=== PATIENT | male | born 1965 ===

== ENCOUNTER 2017-03-23 02:01 | Emergency (ER) | payer MEDICARE, MEDICAID ==
[2017-03-23 02:22] VITALS: O2SAT 98
--- NOTE | 2017-03-23 02:26 | ED PDOC ---
HPI: Back Time Seen by Provider: 03/23/17 02:23 Chief Complaint (Nursing): Back Pain Chief Complaint (Provider): back pain History Per: Patient History/Exam Limitations: no limitations Onset/Duration Of Symptoms: Days (2) Current Symptoms Are (Timing): Still Present Quality Of Discomfort: "Pain" Additional History Per: Patient Additional Complaint(s): 51 y/o male ambulates to ED for eval of low back pain x 2 days. Patient states he has history of chronic back pain, he is being sent for MRI of the back by his primary doctor. Denies fever, nausea/vomiting, fall/trauma, numbness/ weakness lower extremities, bowel/bladder incontinence, dysuria, hematuria. Patient appears intoxicated, admits to drinking tonight. Past Medical History Reviewed: Historical Data, Nursing Documentation, Vital Signs Vital Signs: Last Vital Signs Temp 97.8 F 03/23/17 02:05 Pulse 76 03/23/17 02:05 Resp 18 03/23/17 02:05 BP 108/65 03/23/17 02:05 Pulse Ox 98 03/23/17 02:05 - Medical History PMH: Anxiety, Back Problems (chronic back pain), Depression - Family History Family History: States: Unknown Family Hx - Home Medications Home Medications: Ambulatory Orders Medication Instructions Recorded Ibuprofen [Motrin Tab] 1 tab PO Q6 PRN #20 tab 03/23/17 - Allergies Allergies/Adverse Reactions: Allergies Allergy/AdvReac Type Severity Reaction Status Date / Time No Known Allergies Allergy Verified 10/07/16 09:11 Review of Systems ROS Statement: Except As Marked, All Systems Reviewed And Found Negative Musculoskeletal: Positive for: Back Pain Physical Exam - Reviewed Nursing Documentation Reviewed: Yes Vital Signs Reviewed: Yes - Physical Exam Appears: Positive for: Well, Non-toxic, No Acute Distress (sleeping) Head Exam: Positive for: ATRAUMATIC, NORMAL INSPECTION, NORMOCEPHALIC Skin: Positive for: Normal Color Eye Exam: Positive for: Normal appearance ENT: Positive for: Normal ENT Inspection Cardiovascular/Chest: Positive for: Regular Rate, Rhythm Respiratory: Positive for: Normal Breath Sounds Gastrointestinal/Abdominal: Positive for: Normal Exam Back: Positive for: Normal Inspection Extremity: Positive for: Normal ROM Neurologic/Psych: Positive for: Alert, Oriented - Laboratory Results Result Diagrams: 03/23/17 02:30 03/23/17 02:30 - ECG O2 Sat by Pulse Oximetry: 98 - Progress ED Course And Treament: labs 5:30 patient awake, alert, oriented x3; ambulating steady gait.Stable for discharge. Rx ibuprofen provided. Follow up PMD 2-3 days. Return to ED for worsening/concerning symptoms. Disposition - Clinical Impression Clinical Impression: Back pain, Alcohol abuse - Patient ED Disposition Is Patient to be Admitted: No Counseled Patient/Family Regarding: Studies Performed, Diagnosis, Need For Followup, Rx Given - Disposition Disposition: Routine/Home Disposition Time: 05:38 Condition: STABLE Prescriptions: Ibuprofen [Motrin Tab] 1 tab PO Q6 PRN #20 tab PRN Reason: Pain, Moderate (4-7) Instructions: Abuse of Alcohol (ED), Chronic Back Pain (ED)
[2017-03-23 02:32] LABS: BASO # 0.1 K/uL (0.0-0.2); BASO % 0.8 % (0.0-2.0); EOS # 0.1 K/uL (0.0-0.7); EOS % 0.9 % (0.0-4.0); HEMATOCRIT 38.1 % (35.0-51.0); LYMPH # 3.3 K/uL (1.0-4.3); MEAN CELL VOLUME 94.1 fl (80.0-94.0); MEAN CORPUSCULAR HEMOGLOBIN 31.5 pg (27.0-31.0); MEAN CORPUSCULAR HGB CONC 33.5 g/dL (33.0-37.0); MEAN PLATELET VOLUME 7.6 fl (7.2-11.7); MONO # 0.6 K/uL (0.0-0.8); MONO % 5.4 % (0.0-10.0); NEUT # 7.2 K/uL (1.8-7.0); NEUT % 63.9 % (50.0-75.0); RED CELL DISTRIBUTION WIDTH 14.2 % (11.5-14.5); WHITE BLOOD COUNT 11.3 K/uL (4.8-10.8)
[2017-03-23 02:38] LABS: CHLORIDE 106 mmol/L (98-107); POTASSIUM 4.3 MMOL/L (3.6-5.0); SODIUM 143 mmol/l (132-148)
[2017-03-23 02:40] LABS: BILIRUBIN,TOTAL 0.8 mg/dl (0.2-1.3); GFR AFRICAN-AMERICAN > 60
[2017-03-23 02:41] LABS: ALB/GLOB RATIO 1.2 (1.0-2.1); ALKALINE PHOSPHATASE 51 U/L (38-126); ALT/SGPT 22 U/L (21-72); AST/SGOT 35 U/L (17-59); BLOOD UREA NITROGEN 12 mg/dl (9-20); CALCIUM 9.4 mg/dL (8.4-10.2); CARBON DIOXIDE 26 mmol/L (22-30); GLUCOSE,RANDOM 88 mg/dL (75-110); TOTAL PROTEIN 8.4 G/DL (6.3-8.2)
[2017-03-23 02:42] LABS: ALCOHOL SERUM 295 mg/dl (0-10)
[2017-03-23 05:55] VITALS: BP 122/78; PULSE 86; RESP 16; TEMP 98.9
== END 2017-03-23 05:58 | disposition home or self-care (01) ==
LOC: H.ER 02:01
DX: M54.9 Dorsalgia, unspecified (principal); F10.10 Alcohol abuse, uncomplicated; F32.9 Major depressive disorder, single episode, unspecified; F41.9 Anxiety disorder, unspecified; G89.29 Other chronic pain
CPT/HCPCS: 80053; 82948; 85025; 99283; G0480

== ENCOUNTER 2018-08-13 04:29 | Emergency (ER) | payer OTHER ==
[2018-08-13 05:10] VITALS: BP 128/87; PULSE 78; RESP 16; TEMP 97.9; O2SAT 98
--- NOTE | 2018-08-13 06:21 | ED PDOC ---
HPI: Back Time Seen by Provider: 08/13/18 05:00 Chief Complaint (Nursing): Back Pain Chief Complaint (Provider): Back pain History Per: Patient History/Exam Limitations: no limitations Onset/Duration Of Symptoms: Days (chronic, years) Current Symptoms Are (Timing): Still Present Associated Symptoms: None Additional Complaint(s): Marshall Hamilton is a 53 year old male, with a past medical history of mental health problems, who presents to the emergency department complaining of a chronic back pain ongoing for years. Patient states he gets his medications from mental health clinic . He denies any weakness, dizziness, numbness or other medical complaints. Past Medical History Reviewed: Historical Data, Nursing Documentation, Vital Signs Vital Signs: Last Vital Signs Temp 97.9 F 08/13/18 05:06 Pulse 78 08/13/18 05:06 Resp 16 08/13/18 05:06 BP 128/87 08/13/18 05:06 Pulse Ox 98 08/13/18 05:06 - Medical History PMH: Anxiety, Back Problems (chronic back pain), Depression - Surgical History Other surgeries: orthopedic - Family History Family History: States: Unknown Family Hx - Social History Current smoker - smoking cessation education provided: Yes (light smoker <10 cigarettes daily) Alcohol: Occasional Drugs: Denies - Home Medications Home Medications: Ambulatory Orders Medication Instructions Recorded RX: Ibuprofen [Motrin Tab] 1 tab PO Q6 PRN #20 tab 03/23/17 - Allergies Allergies/Adverse Reactions: Allergies Allergy/AdvReac Type Severity Reaction Status Date / Time No Known Allergies Allergy Verified 10/07/16 09:11 Review of Systems ROS Statement: Except As Marked, All Systems Reviewed And Found Negative Musculoskeletal: Positive for: Back Pain Neurological: Negative for: Weakness, Numbness, Dizziness Physical Exam - Reviewed Nursing Documentation Reviewed: Yes Vital Signs Reviewed: Yes - Physical Exam Appears: Positive for: No Acute Distress (appears intoxicated) Head Exam: Positive for: ATRAUMATIC, NORMAL INSPECTION, NORMOCEPHALIC Skin: Positive for: Normal Color, Warm, Dry Eye Exam: Positive for: Normal appearance, EOMI, PERRL ENT: Positive for: Normal ENT Inspection Neck: Positive for: Normal, Painless ROM Cardiovascular/Chest: Positive for: Regular Rate, Rhythm. Negative for: Murmur Respiratory: Positive for: Normal Breath Sounds. Negative for: Respiratory Distress Gastrointestinal/Abdominal: Positive for: Normal Exam, Soft. Negative for: Tenderness Back: Positive for: Normal Inspection. Negative for: L CVA Tenderness, R CVA Tenderness, Vertebral Tenderness Extremity: Positive for: Normal ROM (upper and lower extremities), Capillary Refill (less than 2 s). Negative for: Tenderness, Deformity, Swelling Neurologic/Psych: Positive for: Alert, pre billing specialist II-XII, Oriented, Gait (stable). Negative for: Motor/Sensory Deficits, Aphasia, Facial Droop - ECG O2 Sat by Pulse Oximetry: 98 (RA) Pulse Ox Interpretation: Normal Medical Decision Making Medical Decision Making: Time: 05:23 Initial Impression: Chronic back pain on reevaluation, pt in no distress sleeping comfortably Initial Plan: --Tylenol 325 mg tab 650 mg PO --Reevaluation pt feels better, stable for dc. Scribe Attestation: Documented by Delfino Delaney, acting as a scribe for Thais Slater MD. Provider Scribe Attestation: All medical record entries made by the Scribe were at my direction and personally dictated by me. I have reviewed the chart and agree that the record accurately reflects my personal performance of the history, physical exam, medical decision making, and the department course for this patient. I have also personally directed, reviewed, and agree with the discharge instructions and dis position. Disposition - Clinical Impression Clinical Impression: Chronic back pain - Patient ED Disposition Is Patient to be Admitted: No Counseled Patient/Family Regarding: Diagnosis, Need For Followup - Disposition Disposition: Routine/Home Disposition Time: 06:20 Condition: IMPROVED Additional Instructions: follow up in the clinic in 1-2 days return to the ED with any worsening or concerning symptoms Instructions: Chronic Pain (DC) Forms: [employer] (Indonesian)
== END 2018-08-13 06:55 | disposition home or self-care (01) ==
LOC: H.ER 04:29
DX: M54.9 Dorsalgia, unspecified (principal); G89.29 Other chronic pain; F17.210 Nicotine dependence, cigarettes, uncomplicated; Z86.59 Personal history of other mental and behavioral disorders

== ENCOUNTER 2018-10-06 01:34 | Emergency (ER) | payer MEDICARE, OTHER ==
[2018-10-06 01:40] VITALS: BP 123/80; PULSE 88; RESP 18; TEMP 98.7; O2SAT 97
--- NOTE | 2018-10-06 03:01 | ED PDOC ---
HPI: Psych/Substance Abuse Time Seen by Provider: 10/06/18 02:33 Chief Complaint (Nursing): Alcohol Ingestion Chief Complaint (Provider): clearance History Per: Patient History/Exam Limitations: no limitations Additional Complaint(s): 53 y/o male here in police custody for clearance for incarceration. Patient denies acute medical or psychiatric complaints. Admits to drinking "a little" tonight. Past Medical History Reviewed: Historical Data, Nursing Documentation, Vital Signs Vital Signs: Last Vital Signs Temp 98.7 F 10/06/18 01:38 Pulse 88 10/06/18 01:38 Resp 18 10/06/18 01:38 BP 123/80 10/06/18 01:38 Pulse Ox 97 10/06/18 01:38 - Medical History PMH: Anxiety, Back Problems (chronic back pain), Depression - Family History Family History: States: Unknown Family Hx - Home Medications Home Medications: Ambulatory Orders Medication Instructions Recorded Ibuprofen [Motrin Tab] 1 tab PO Q6 PRN #20 tab 03/23/17 - Allergies Allergies/Adverse Reactions: Allergies Allergy/AdvReac Type Severity Reaction Status Date / Time No Known Allergies Allergy Verified 10/07/16 09:11 Review of Systems ROS Statement: Except As Marked, All Systems Reviewed And Found Negative Physical Exam - Reviewed Nursing Documentation Reviewed: Yes Vital Signs Reviewed: Yes - Physical Exam Appears: Positive for: Well, Non-toxic, No Acute Distress Head Exam: Positive for: ATRAUMATIC, NORMAL INSPECTION, NORMOCEPHALIC Skin: Positive for: Normal Color Eye Exam: Positive for: Normal appearance ENT: Positive for: Normal ENT Inspection Cardiovascular/Chest: Positive for: Regular Rate, Rhythm Respiratory: Positive for: Normal Breath Sounds Gastrointestinal/Abdominal: Positive for: Normal Exam Back: Positive for: Normal Inspection Extremity: Positive for: Normal ROM Neurologic/Psych: Positive for: Alert, Oriented (x3) - ECG O2 Sat by Pulse Oximetry: 97 - Progress ED Course And Treament: -accucheck -crisis eval Patient evaluated by athletic turf worker and cleared for discharge as per Mitchell Cardoza NP/Dr. Juan bhat given Disposition - Clinical Impression Clinical Impression: Alcohol use disorder - Patient ED Disposition Is Patient to be Admitted: No Counseled Patient/Family Regarding: Studies Performed, Diagnosis, Need For Followup - Disposition Disposition: Discharged/Transfer to Law Enforcement Disposition Time: 04:17 Condition: STABLE Additional Instructions: Patient medically and psychiatrically cleared for incarceration Instructions: Alcohol Use - When Is Drinking a Problem?
== END 2018-10-06 04:42 | disposition home or self-care (01) ==
LOC: H.ER 01:34
DX: F10.129 Alcohol abuse with intoxication, unspecified (principal); F32.9 Major depressive disorder, single episode, unspecified; F41.9 Anxiety disorder, unspecified; G89.29 Other chronic pain

== ENCOUNTER 2018-11-18 05:46 | Emergency (ER) | payer MEDICARE, OTHER ==
[2018-11-18 06:14] VITALS: RESP 18; TEMP 98.2
--- NOTE | 2018-11-18 06:27 | ED PDOC ---
HPI: Back Time Seen by Provider: 11/18/18 05:57 Chief Complaint (Nursing): Back Pain History Per: Patient History/Exam Limitations: no limitations Onset/Duration Of Symptoms: Days Current Symptoms Are (Timing): Still Present Quality Of Discomfort: Pressure Associated Symptoms: None Exacerbating Factor(s): Turning, Movement Additional History Per: Patient Additional Complaint(s): Hx of alcohol abuse, chronic back pain presenting with acute on chronic exacerbation of back pain. Patient is a poor historian and does not elaborate clearly on how long the pain has been present but states "a long time", states it's worse with movement or changing positions. Denies any numbness, weakness, incontinence, fevers, chills, or other associated symptoms. States he took Motrin yesterday without relief. Past Medical History Reviewed: Historical Data, Nursing Documentation, Vital Signs Vital Signs: Last Vital Signs Temp 98.2 F 11/18/18 06:06 Pulse 110 H 11/18/18 06:06 Resp 18 11/18/18 06:06 BP 119/76 11/18/18 06:06 Pulse Ox 97 11/18/18 06:06 - Medical History PMH: Anxiety, Back Problems (chronic back pain), Depression Denies: Diabetes, Hepatitis, HIV, HTN, Seizures, Sexually Transmitted Disease - Family History Family History: States: Unknown Family Hx - Home Medications Home Medications: Ambulatory Orders Medication Instructions Recorded Ibuprofen [Motrin Tab] 1 tab PO Q6 PRN #20 tab 03/23/17 Lidocaine 1 each TP DAILY #10 adh..patch 11/18/18 Naproxen [Naprosyn] 500 mg PO BID #30 tablet 11/18/18 - Allergies Allergies/Adverse Reactions: Allergies Allergy/AdvReac Type Severity Reaction Status Date / Time No Known Allergies Allergy Verified 11/18/18 06:06 Review of Systems ROS Statement: Except As Marked, All Systems Reviewed And Found Negative Musculoskeletal: Positive for: Back Pain Physical Exam - Reviewed Nursing Documentation Reviewed: Yes Vital Signs Reviewed: Yes - Physical Exam Appears: Positive for: Well, Non-toxic, No Acute Distress Head Exam: Positive for: ATRAUMATIC, NORMAL INSPECTION, NORMOCEPHALIC Skin: Positive for: Normal Color, Warm, DRY Eye Exam: Positive for: EOMI, Normal appearance, PERRL ENT: Positive for: Normal ENT Inspection Neck: Positive for: Normal, Painless ROM Cardiovascular/Chest: Positive for: Regular Rate, Rhythm Respiratory: Positive for: CNT, Normal Breath Sounds Gastrointestinal/Abdominal: Positive for: Normal Exam, Soft Back: Positive for: Normal Inspection, Muscle Spasm (Lower back paraspinal musculature tenderness to palpation). Negative for: L CVA Tenderness, R CVA Tenderness, Vertebral Tenderness Extremity: Positive for: Normal ROM Neurologic/Psych: Positive for: Alert, neon glass blower II-XII, Oriented. Negative for: Motor/Sensory Deficits - ECG O2 Sat by Pulse Oximetry: 97 Pulse Ox Interpretation: Normal Medical Decision Making Medical Decision Makin53 year old with chronic back pain presenting with back pain --Patient was soundly asleep prior to history and physical --Patient has no deficits or weakness --Not concerned for acute spinal cord pathology, patient's symptoms are consistent with musculoskeletal issue --Recommend symptomatic care and urgent followup in clinic Disposition - Clinical Impression Clinical Impression: Low back pain - Patient ED Disposition Is Patient to be Admitted: No - Disposition Referrals: [facility] [place] [Outside] Disposition: Routine/Home Disposition Time: 06:29 Condition: GOOD Additional Instructions: Followup in Orthopedic Clinic this week. Prescriptions: Lidocaine 1 each TP DAILY #10 adh..patch Naproxen [Naprosyn] 500 mg PO BID #30 tablet Instructions: Chronic Pain (DC), Low Back Pain (DC), Do I Need an X-ray (or Other Test) for Low Back Pain?
[2018-11-18 07:06] VITALS: BP 120/84; PULSE 97; O2SAT 98
== END 2018-11-18 06:45 | disposition home or self-care (01) ==
LOC: H.ER 05:46
DX: M54.5 Low back pain (principal)

== ENCOUNTER 2018-11-21 02:54 | Emergency (ER) | payer OTHER ==
[2018-11-21 03:07] VITALS: TEMP 98
[2018-11-21] MEDS ORDERED: Naproxen 500 MG TAB PO ONE ×2 (03:19→04:09)
--- NOTE | 2018-11-21 03:22 | ED PDOC ---
HPI: Back Time Seen by Provider: 11/21/18 03:03 Chief Complaint (Nursing): Back Pain Chief Complaint (Provider): back pain History Per: Patient History/Exam Limitations: no limitations Onset/Duration Of Symptoms: Days, Waxing/Waning Current Symptoms Are (Timing): Still Present Exacerbating Factor(s): Turning, Movement Additional Complaint(s): 53 y/o male presents for evaluation of acute on chronic lower back pain x 1 week. States pain worse with movement and positional change. Patient states he was evaluated in the ED for same a few days ago and prescribed medication but states it is not helping. Denies fever, nausea/vomiting, chest pain, shortness of breath, palpitations, changes in bowel movements, urinary symptoms, bowel/bladder incontinence, numbness/weakness of extremities. Past Medical History Reviewed: Historical Data, Nursing Documentation, Vital Signs Vital Signs: Last Vital Signs Temp 98.0 F 11/21/18 03:00 Pulse 108 H 11/21/18 03:00 Resp 18 11/21/18 03:00 BP 117/73 11/21/18 03:00 Pulse Ox 98 11/21/18 03:00 - Medical History PMH: Anxiety, Back Problems (chronic back pain), Depression Denies: Diabetes, Hepatitis, HIV, HTN, Seizures, Sexually Transmitted Disease - Surgical History Surgical History: No Surg Hx - Family History Family History: States: Unknown Family Hx - Home Medications Home Medications: Ambulatory Orders Medication Instructions Recorded Ibuprofen [Motrin Tab] 1 tab PO Q6 PRN #20 tab 03/23/17 Lidocaine 1 each TP DAILY #10 adh..patch 11/18/18 Naproxen [Naprosyn] 500 mg PO BID #30 tablet 11/18/18 Cyclobenzaprine [Cyclobenzaprine 10 mg PO BID PRN #14 tab 11/21/18 HCl] - Allergies Allergies/Adverse Reactions: Allergies Allergy/AdvReac Type Severity Reaction Status Date / Time No Known Allergies Allergy Verified 11/18/18 06:06 Review of Systems ROS Statement: Except As Marked, All Systems Reviewed And Found Negative Musculoskeletal: Positive for: Back Pain Physical Exam - Reviewed Nursing Documentation Reviewed: Yes Vital Signs Reviewed: Yes - Physical Exam Appears: Positive for: Well, Non-toxic, No Acute Distress Head Exam: Positive for: ATRAUMATIC, NORMAL INSPECTION, NORMOCEPHALIC Respiratory: Positive for: Normal Breath Sounds Back: Positive for: Muscle Spasm (bilateral paralumbar tenderness). Negative for: L CVA Tenderness, R CVA Tenderness, Vertebral Tenderness, Decreased ROM Extremity: Positive for: Normal ROM Neurologic/Psych: Positive for: Alert, Oriented (x3) - ECG O2 Sat by Pulse Oximetry: 98 - Progress ED Course And Treament: -Naproxen PO -Flexeril PO Patient was advised to follow up with primary doctor Rx flexeril provided Return precautions given Disposition - Clinical Impression Clinical Impression: Chronic back pain - Patient ED Disposition Is Patient to be Admitted: No Counseled Patient/Family Regarding: Diagnosis, Need For Followup, Rx Given - Disposition Referrals: [facility] [Outside] Disposition: Routine/Home Disposition Time: 04:27 Condition: IMPROVED Prescriptions: Cyclobenzaprine [Cyclobenzaprine HCl] 10 mg PO BID PRN #14 tab PRN Reason: Muscle Spasm Instructions: Chronic Pain
[2018-11-21 05:25] VITALS: BP 123/82; PULSE 91; RESP 16; O2SAT 97
== END 2018-11-21 05:25 | disposition home or self-care (01) ==
LOC: H.ER 02:54
DX: M54.5 Low back pain (principal); G89.29 Other chronic pain; Z86.59 Personal history of other mental and behavioral disorders

== ENCOUNTER 2018-11-29 01:51 | Emergency (ER) | payer OTHER ==
[2018-11-29 02:10] VITALS: O2SAT 96
[2018-11-29] MEDS ORDERED: Naproxen 500 MG TAB PO ONE (02:34)
[2018-11-29] MEDS: Naproxen 500 MG TAB PO STA (02:39)
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
[2018-11-29 03:13] VITALS: BP 121/76; PULSE 86; RESP 17; TEMP 97.9
== END 2018-11-29 02:53 | disposition home or self-care (01) ==
LOC: H.ER 01:51
DX: M54.9 Dorsalgia, unspecified (principal); G89.29 Other chronic pain; I10 Essential (primary) hypertension; Z79.1 Long term (current) use of non-steroidal anti-inflammatories (NSAID); F32.9 Major depressive disorder, single episode, unspecified; F41.9 Anxiety disorder, unspecified

== ENCOUNTER 2019-01-02 01:24 | Emergency (ER) | payer OTHER ==
[2019-01-02 02:38] VITALS: BMI 29.0
[2019-01-02 02:43] VITALS: BP 136/89; PULSE 76; RESP 18; TEMP 98.7; O2SAT 99
[2019-01-02] MEDS ORDERED: Naproxen 500 MG TAB PO ONE ×2 (04:14→04:24)
--- NOTE | 2019-01-02 04:17 | ED PDOC ---
HPI: Back Time Seen by Provider: 01/02/19 03:47 Chief Complaint (Nursing): Back Pain Chief Complaint (Provider): back pain History Per: Patient Additional Complaint(s): 53 y/o male ambulates to ED for evaluation of chronic low back pain. Patient denies trauma, fever, nausea/vomiting, numbness/weakness lower extremities. Patient admits to drinking today Past Medical History Reviewed: Historical Data, Nursing Documentation, Vital Signs Vital Signs: Last Vital Signs Temp 98.7 F 01/02/19 01:35 Pulse 76 01/02/19 01:35 Resp 18 01/02/19 01:35 BP 136/89 01/02/19 01:35 Pulse Ox 99 01/02/19 01:35 - Medical History PMH: Anxiety, Back Problems (chronic back pain), Depression Denies: Diabetes, Hepatitis, HIV, HTN, Seizures, Sexually Transmitted Disease - Surgical History Surgical History: No Surg Hx - Family History Family History: States: Unknown Family Hx - Home Medications Home Medications: Ambulatory Orders Medication Instructions Recorded Ibuprofen [Motrin Tab] 1 tab PO Q6 PRN #20 tab 03/23/17 Lidocaine 1 each TP DAILY #10 adh..patch 11/18/18 Naproxen [Naprosyn] 500 mg PO BID #30 tablet 11/18/18 Cyclobenzaprine [Cyclobenzaprine 10 mg PO BID PRN #14 tab 11/21/18 HCl] Naproxen [Naprosyn] 500 mg PO BID #30 tablet 11/29/18 Naproxen [Naprosyn] 500 mg PO Q12 PRN #14 tablet 01/02/19 - Allergies Allergies/Adverse Reactions: Allergies Allergy/AdvReac Type Severity Reaction Status Date / Time No Known Allergies Allergy Verified 01/02/19 02:38 Review of Systems ROS Statement: Except As Marked, All Systems Reviewed And Found Negative Musculoskeletal: Positive for: Back Pain Physical Exam - Reviewed Nursing Documentation Reviewed: Yes Vital Signs Reviewed: Yes - Physical Exam Appears: Positive for: Well, Non-toxic, No Acute Distress (sleeping) Head Exam: Positive for: ATRAUMATIC, NORMAL INSPECTION, NORMOCEPHALIC Skin: Positive for: Normal Color Eye Exam: Positive for: Normal appearance Cardiovascular/Chest: Positive for: Regular Rate, Rhythm Respiratory: Positive for: Normal Breath Sounds Gastrointestinal/Abdominal: Positive for: Normal Exam Back: Positive for: Normal Inspection Extremity: Positive for: Normal ROM Neurological/Psych: Positive for: Awake, Alert, Oriented (x3) - ECG O2 Sat by Pulse Oximetry: 99 - Progress ED Course And Treament: -accucheck -naproxen PO Disposition - Clinical Impression Clinical Impression: Alcohol use, Back pain - Patient ED Disposition Is Patient to be Admitted: No Counseled Patient/Family Regarding: Studies Performed, Diagnosis, Need For Followup, Rx Given - Disposition Referrals: [facility] [Outside] Disposition: Routine/Home Disposition Time: 04:17 Condition: IMPROVED Prescriptions: Naproxen [Naprosyn] 500 mg PO Q12 PRN #14 tablet PRN Reason: Pain, Moderate (4-7) Instructions: Alcohol Use - When Is Drinking a Problem?, Low Back Pain in Adults
== END 2019-01-02 04:35 | disposition home or self-care (01) ==
LOC: H.ER 01:24
DX: F10.129 Alcohol abuse with intoxication, unspecified (principal); M54.9 Dorsalgia, unspecified